=== PATIENT | female | born 1985 | race Caucasian/White ===

== ENCOUNTER 2018-08-20 10:20 | Emergency (ER) | payer SELFPAY ==
[2018-08-20] MEDS ORDERED: NS 0.9% 1000 ML* 1,000 ML IV ONE ×2 (10:33→11:11)
[2018-08-20] MEDS ORDERED: guaiFENesin/CODIEN 100MG-10MG* 5 ML UDC PO ONE (10:33)
--- NOTE | 2018-08-20 10:42 | ED ---
Influenza-Like Illness - HPI Summary HPI Summary: This patient is a 33 year old F presenting to [facility] with a chief complaint of flu-like since 08/18/2018. The patient rates the pain 4/10 in severity. Patient reports a cough, body ache, left ear ache, congestion, green mucus that tastes terrible, CP secondary to coughing, and fever. She reports a PMHx of amenorrhea. - History of Current Complaint Chief Complaint: EDFluSymptoms Time Seen by Provider: 08/20/18 10:26 Hx Obtained From: Patient Onset/Duration: Lasting Days - Since 08/18/2018, Still Present Associated Signs & Symptoms: Fever, Cough - Allergy/Home Medications Allergies/Adverse Reactions: Allergies Allergy/AdvReac Type Severity Reaction Status Date / Time No Known Allergies Allergy Verified 09/17/14 16:52 PMH/Surg Hx/FS Hx/Imm Hx Endocrine/Hematology History: Reports: Other Endocrine/Hematological Disorders - Rt thyroid mass - awaiting bx Cardiovascular History: Denies: Hx Hypertension Respiratory History: Denies: Hx Pneumonia Infectious Disease History: No Infectious Disease History: Denies: Traveled Outside the [place] in Last 30 Days - Family History Known Family History: Positive: Hypertension, Diabetes, Other - Cancer - Social History Occupation: Employed Full-time - [employer] Alcohol Use: Rare Substance Use Type: Reports: None Smoking Status (MU): Heavy Every Day Tobacco Smoker Review of Systems Positive: Fever, Other - Body ache Positive: Ear Ache - Left ear ache, Nasal Discharge - "Green mucus that tastes terrible" Positive: Chest Pain - Secondary to coughing Positive: Cough, Other - Congestion All Other Systems Reviewed And Are Negative: Yes Physical Exam - Summary Physical Exam Summary: VITAL SIGNS: Reviewed. GENERAL: Patient is a well-developed, nourished, but clammy FEMALE who is lying comfortable in the stretcher. Patient is not in any acute respiratory distress. HEAD AND FACE: No signs of trauma. No ecchymosis, hematomas or skull depressions. No sinus tenderness. EYES: PERRLA, EOMI x 2, No injected conjunctiva, no nystagmus. EARS: Hearing grossly intact. Ear canals and tympanic membranes are within normal limits. MOUTH: Pharngeal erythema. NECK: Supple, trachea is midline, no adenopathy, no JVD, no carotid bruit, no c- spine tenderness, neck with full ROM. CHEST: Symmetric, no tenderness at palpation LUNGS: Clear to auscultation bilaterally. Coarse breath sounds. CVS: Tachycardic, egular rhythm, S1 and S2 present, no murmurs or gallops appreciated. ABDOMEN: Soft, non-tender. No signs of distention. No rebound no guarding, and no masses palpated. Bowel sounds are normal. EXTREMITIES: FROM in all major joints, no edema, no cyanosis or clubbing. NEURO: Alert and oriented x 3. No acute neurological deficits. Speech is normal and follows commands. SKIN: Dry and warm Triage Information Reviewed: Yes Vital Signs On Initial Exam: Initial Vitals Temp Pulse Resp BP Pulse Ox 97.2 F 123 20 144/73 96 08/20/18 10:22 08/20/18 10:22 08/20/18 10:22 08/20/18 10:22 08/20/18 10:22 Vital Signs Reviewed: Yes Diagnostics - Vital Signs Vital Signs Temp Pulse Resp BP Pulse Ox 08/20/18 10:22 97.2 F 123 20 144/73 96 - Laboratory Result Diagrams: 08/20/18 11:00 08/20/18 11:00 Lab Statement: Any lab studies that have been ordered have been reviewed, and results considered in the medical decision making process. - Radiology Chest X-Ray Radiology Interpretation Completed By: Radiologist Summary of Radiographic Findings: 10:59. NO ACTIVE CARDIOPULMONARY DISEASE. ED Physician has reviewed this imaging report. Flu Symptom Course/Dx - Course Assessment/Plan: This patient is a 33 year old F presenting to [facility] with a chief complaint of flu-like since 08/18/2018. The patient rates the pain 4/10 in severity. Patient reports a productive cough, body ache, left ear ache, congestion, green mucus that tastes terrible, CP secondary to coughing, and fever. She reports a PMHx of amenorrhea. Chest x-ray impression: No active cardiac pulmonary disease. Urinalysis is negative for UTI, however the patient has ketones probably secondary to dehydration. Influenza A and B- rapid strep is negative. In the ED course the patient was given 2 L of IV fluids, she was given Robitussin for the coughing. Has developed these medications the patient feels more rehydrated, she feels better and the cough has a improved. Therefore believe that the patients symptoms are secondary to a viral cough. Therefore, I discussed the findings and test results with the patient and no need for antibiotics. The patient understands and agrees. I discussed all the findings and test results with the patient. Patient was instructed to return to the emergency room immediately if any of the symptoms return or worsens. Plan of care was discussed with the patient and she understands and agrees. All questions were answered at patient satisfaction. There were no further complaints or concerns. Lung exam before discharge: CTA B/L. Good air exchange. No wheezing or crackles heard. CVS: S1 and S2 present. No murmurs appreciated. Patient is alert and oriented x 3. Patient is hemodynamically stable. Patient will be discharged home with follow up PCP in the next 2-3 days - Diagnoses Differential Diagnosis/HQI/PQRI: Positive: Bronchitis, Influenza, Pneumonia, Upper Respiratory Infection Provider Diagnoses: URI with cough and congestion Discharge - Sign-Out/Discharge Documenting (check all that apply): Patient Departure - Discharge Plan Condition: Stable Disposition: HOME Prescriptions: guaiFENesin/CODIEN 100MG-10MG* [Robitussin AC 100Mg-10Mg*] 10 ml PO Q6H PRN # 200 ml MDD 40 ml PRN Reason: Cough Patient Education Materials: Upper Respiratory Infection (ED) Forms: *Work Release Referrals: Shalini Syed MD [Primary Care Provider] - 3 Days Additional Instructions: RETURN THE ED FOR ANY WORSENING OR NEW SYMPTOMS. FOLLOW UP WITH YOUR PRIMARY CARE PROVIDER WITHIN 3 DAYS. - Billing Disposition and Condition Condition: STABLE Disposition: Home - Attestation Statements Document Initiated by Ron: Yes Documenting Francisibe: Ermias Whitman Provider For Whom Ron is Documenting (Include Credential): Lenard Wilhelm MD Scribe Attestation: Ermias Armstrong, scribed for Lenard Wilhelm MD on 08/20/18 at 2103. Scribe Documentation Reviewed: Yes Provider Attestation: The documentation as recorded by the Ermias antonio accurately reflects the service I personally performed and the decisions made by me, Lenard Wilhelm MD Status of Scribe Document: Viewed
[2018-08-20 11:08] LABS: Urine Appearance Clear; Urine Blood 3+ (Negative); Urine Color Straw; Urine Ketones Trace (Negative); Urine Protein Negative (Negative); Urine Red Blood Cell 2+(6-10/hpf) (Absent); Urine Specific Gravity 1.003 (1.010-1.030); Urine Urobilinogen Negative (Negative); Urine White Blood Cell Trace(0-5/hpf) (Absent)
[2018-08-20] MEDS ORDERED: Ketorolac INJ* 30 MG/ML 1 ML VIAL IV PUSH ONE (11:11)
[2018-08-20 11:14] LABS: ABS Basophils 0 10^3/ul (0-0.2); ABS Eosinophils 0 10^3/ul (0-0.6); ABS Lymphocytes 1.3 10^3/ul (1.0-4.8); ABS Monocytes 0.7 10^3/ul (0-0.8); ABS Nucleated RBC 0 10^3/ul; Eosinophil % 0.5 %; Hematocrit 50 % (35-47); Hemoglobin 17.7 g/dl (12.0-16.0); Mean Corpuscular HGB Conc 35 g/dl (31-36); Mean Corpuscular Hemoglobin 32 pg (27-31); Mean Corpuscular Volume 90 fL (80-97); Mean Platelet Volume 8.9 fL (7.4-10.4); Nucleated Red Blood Cells % 0.3; Platelet Count 208 10^3/ul (150-450); Red Blood Count 5.61 10^6/ul (4.00-5.40); Red Cell Distribution Width 13 % (10.5-15)
[2018-08-20 11:33] LABS: EGFR Non-African American 67.8 (>60)
[2018-08-20 14:16] VITALS: BP 114/61
--- NOTE | 2018-08-23 16:13 | PN ---
Progress Note - Progress Note Date of Service: 08/20/18 Note: Pt. seen in ED 08/20 for URI sxs. She had urine culture at that time. Urine culture today is growing [id number] e. coli. Attempted to call pt. to at [phone] but the number she has listed is not in service. I attempted to call her contact's number but the person who answered stated it was the wrong number. Will send letter to return call to ER to check if pt. is having urinary sxs and needs antibx.
== END 2018-08-20 14:15 | disposition home or self-care (01) ==
LOC: ED 10:20
DX: J06.9 Acute upper respiratory infection, unspecified (principal); R05 Cough; R50.9 Fever, unspecified; F17.210 Nicotine dependence, cigarettes, uncomplicated; H92.02 Otalgia, left ear; R07.9 Chest pain, unspecified
CPT/HCPCS: 36415; 71046; 80053; 81003; 81015; 83605; 85025; 86140; 87077; 87086; 87186; 87651; 96361; 96374; 99283; A9270-GY; J1885

== ENCOUNTER 2018-08-27 11:03 | Emergency (ER) | payer SELFPAY ==
[2018-08-27 13:45] VITALS: BP 120/73
--- NOTE | 2018-08-27 14:43 | ED ---
Respiratory - HPI Summary HPI Summary: Patient is 33-year-old female presenting to the ED with a 1.5 week history of cough, congestion and wheezing. She is a heavy smoker and states she has been only able to smoke approximately 5 cigarettes a day due to her severe cough. Cough is worse at night. she was seen here last week with similar symptoms and chest x-ray obtained. She denies any fevers, sweats, chills. She endorses symptoms sinus pressure. She denies any other symptoms at this time including headache, throat pain. She states she normally needs inhalers when she gets bronchitis. History of bronchitis. - History of Current Complaint Chief Complaint: EDGeneral Stated Complaint: COUGH, SINUS PRESSURE Time Seen by Provider: 08/27/18 12:47 Hx Obtained From: Patient Onset/Duration: Sudden Onset Timing: Constant Initial Severity: Moderate Current Severity: Moderate Pain Intensity: 3 Character: Cough (Productive) Sputum Amount: Small Sputum Color: Clear Aggravating Factor(s): Nothing Alleviating Factor(s): Nothing Associated Signs and Symptoms: SOB - Allergy/Home Medications Allergies/Adverse Reactions: Allergies Allergy/AdvReac Type Severity Reaction Status Date / Time No Known Allergies Allergy Verified 08/27/18 12:45 PMH/Surg Hx/FS Hx/Imm Hx Previously Healthy: Yes Endocrine/Hematology History: Reports: Other Endocrine/Hematological Disorders - Rt thyroid mass - awaiting bx Cardiovascular History: Denies: Hx Hypertension Respiratory History: Denies: Hx Pneumonia - Immunization History Hx Pertussis Vaccination: No Immunizations Up to Date: Yes Infectious Disease History: No Infectious Disease History: Denies: Traveled Outside the [place] in Last 30 Days - Family History Known Family History: Positive: Hypertension, Diabetes, Other - Cancer - Social History Occupation: Unemployed Lives: With Family Alcohol Use: None Hx Substance Use: No Substance Use Type: Reports: None Hx Tobacco Use: Yes Smoking Status (MU): Heavy Every Day Tobacco Smoker Review of Systems Constitutional: Negative Negative: Fever, Chills, Fatigue, Skin Diaphoresis Negative: Palpitations, Chest Pain Positive: Shortness Of Breath, Cough Genitourinary: Negative Positive: no symptoms reported, see HPI Negative: Arthralgia, Myalgia Skin: Negative Psychological: Normal All Other Systems Reviewed And Are Negative: Yes Physical Exam Triage Information Reviewed: Yes Vital Signs On Initial Exam: Initial Vitals Temp Pulse Resp BP Pulse Ox 98.4 F 90 18 119/71 96 08/27/18 11:14 08/27/18 11:14 08/27/18 11:14 08/27/18 11:14 08/27/18 11:14 Vital Signs Reviewed: Yes Appearance: Positive: Well-Appearing, Well-Nourished Skin: Positive: Warm, Skin Color Reflects Adequate Perfusion Head/Face: Positive: Normal Head/Face Inspection Eyes: Positive: EOMI, RAZ, Conjunctiva Clear Neck: Positive: No Lymphadenopathy Respiratory/Lung Sounds: Positive: Clear to Auscultation, Breath Sounds Present , Wheezes. Negative: Decreased Breath Sounds, Rales, Rhonchi, Subcutaneous Emphysema, Unable to speak in full sentences, Fatigue Cardiovascular: Positive: RRR, Pulses are Symmetrical in both Upper and Lower Extremities Musculoskeletal: Positive: Strength/ROM Intact Neurological: Positive: Alert, Oriented to Person Place, Time, Speech Normal Psychiatric: Positive: Affect/Mood Appropriate AVPU Assessment: Alert Diagnostics - Vital Signs Vital Signs Temp Pulse Resp BP Pulse Ox 08/27/18 13:44 98.5 F 89 18 120/73 96 08/27/18 11:14 98.4 F 90 18 119/71 96 - Laboratory Lab Statement: Any lab studies that have been ordered have been reviewed, and results considered in the medical decision making process. Disposition - Course Course Of Treatment: During the course of treatment the patient's evaluated for bronchitis symptoms including cough, chest congestion, wheezing and some sinus pressure. On physical examination, patient is coughing, however lungs are CTA. Chest x-ray last week shows no acute cardiopulmonary disease. No sinus pressure or pain bilaterally to the maxillary sinus. RRR. Patient appears otherwise well. I have offered an albuterol inhaler, Tessalon Perles, prednisone as well as azithromycin. - Diagnoses Provider Diagnoses: Cough, Bronchitis Discharge - Sign-Out/Discharge Documenting (check all that apply): Patient Departure - Discharge Plan Condition: Stable Disposition: HOME Prescriptions: Albuterol HFA INHALER* [Ventolin HFA Inhaler*] 1 puff INH Q4H PRN #1 mdi PRN Reason: Shortness Of Breath Azithromyxin LORETTA (NF) [Z-Loretta (Zithromax) 250 mg tabs #6] 2 tab PO .TODAY, THEN 1 DAILY #6 tab Benzonatate CAP* [Tessalon 100 MG CAP*] 100 mg PO TID #30 cap predniSONE TAB* [Deltasone TAB*] 50 mg PO DAILY #5 tab Patient Education Materials: Acute Bronchitis (ED) Forms: *Work Release Referrals: Shalini Syed MD [Primary Care Provider] - Additional Instructions: The prednisone will begin to make you feel improved Take prednisone once daily in the morning 5 days Albuterol inhaler every 4 hours as needed for shortness of breath Azithromycin, 2 tabs today and 1 tab daily 4 days Tessalon up to 3 times daily for cough Also use [id number] Robitussin up to 4 times daily for cough - Billing Disposition and Condition Condition: STABLE Disposition: Home
== END 2018-08-27 13:44 | disposition home or self-care (01) ==
LOC: ED 11:03
DX: J40 Bronchitis, not specified as acute or chronic (principal); F17.200 Nicotine dependence, unspecified, uncomplicated
CPT/HCPCS: 99282